=== PATIENT | female | born 1965 | race Caucasian/White ===

== ENCOUNTER 2016-10-09 11:44 | Emergency (ER) | payer MEDICARE, MEDICAID ==
--- NOTE | 2016-10-12 13:48 | ER ---
ADMIT: 10/09/2016 RM/LOC: ER [facility] MR#: [id number] [id number] [place], [place] [id number] NASEEM BAHENA [address] [place] [address] Emergency Room Report SEX: F AGE: 51 : 1965 DATE: 10/09/2016 PRIMARY CARE: Valentin Preston MD CHIEF COMPLAINT: Injury to left lower leg. HISTORY OF PRESENT ILLNESS: A 51-year-old female, who presents after sustaining an injury at home yesterday. She states she was carrying groceries when she caught her leg on something, had some bruising with some redness, is concerned about possible cellulitis as she has had in the past. She states she is in a moderate amount of pain, rating as a 7-8/10. She is bearing weight on this. She is chronically on 3 L for history of COPD. Continues to smoke half a pack per day. COURSE IN THE EMERGENCY ROOM: The patient was seen and examined. Afebrile and nontoxic. No acute distress. Physical exam is significant for some tenderness and ecchymosis on the lower left leg with tenderness to palpation. She has good strength at the knee and ankle full range of motion. Her pulses are intact in dorsalis pedis and posterior tibialis. Brisk capillary refill. Skin is otherwise intact. I did get 2 views of the left lower leg. Negative for any acute fractures. I did place an STEVIE wrap on this. IMPRESSION: Contusion to left lower leg. DISPOSITION: The patient is discharged home. Tylenol and ibuprofen as needed for pain. Rest, ice, compress, elevate, Stevie wrap as needed at night. Activity as tolerated. Return with worsening signs or symptoms. Follow up with Dr. Preston. The questions sought and answered to the best of my ability and the patient's satisfaction. Discharged in stable condition. BRAYAN Alonzo / Miguel Angel Valdovinos MD / rehana JOB #: [id number] CC: Miguel Angel Valdovinos MD, Attending Physician Valentin Preston MD, Family Physician
== END 2016-10-09 13:16 | disposition home or self-care (01) ==
LOC: ER 11:44
DX: S80.12XA Contusion of left lower leg, initial encounter (principal); I10 Essential (primary) hypertension; J44.9 Chronic obstructive pulmonary disease, unspecified; F17.210 Nicotine dependence, cigarettes, uncomplicated; W23.0XXA Caught, crushed, jammed, or pinched between moving objects, initial encounter; Y92.009 Unspecified place in unspecified non-institutional (private) residence as the place of occurrence of the external cause